=== PATIENT | male | born 1940 | race Caucasian/White ===

== ENCOUNTER → 2023-05-22 08:32 | Outpatient (REF) | payer MEDICARE, SELFPAY ==
[2023-05-22 10:32] LABS: ALT (SGPT) 19 U/L (0-50); AST (SGOT) 25 U/L (17-59); Albumin 4.1 g/dl (3.5-5.0); Alkaline Phosphatase 67 U/L (38-126); Blood Urea Nitrogen 19 mg/dl (9-20); Calcium 9.6 mg/dl (8.4-10.2); Carbon Dioxide 30 mmol/L (22-30); Chloride 100 mmol/L (98-107); Glucose 93 mg/dl (70-99); HDL Cholesterol 65 mg/dl; LDL Cholesterol, Calculated 62 mg/dl; Potassium 4.3 mmol/L (3.5-5.1); Sodium 138 mmol/L (135-145); Total Bilirubin 1.1 mg/dl (0.2-1.3); Total Cholesterol 146 mg/dl (50-199); Total Protein 6.4 g/dl (6.3-8.2); Triglyceride 98 mg/dl (10-149); Very Low Density Lipoprotein 19 mg/dl (0-30); eGFR > 60.00
== END ==
LOC: REG 08:32
PROVIDERS: ATTENDING PHYSICIAN Family Medicine
DX: E78.2 Mixed hyperlipidemia (principal)
CPT/HCPCS: 36415; 80053; 80061

== ENCOUNTER → 2023-06-20 | Outpatient (REF) | payer MEDICARE, SELFPAY | LOC: DHSLP | PROVIDERS: ATTENDING PHYSICIAN Internal Medicine; FAMILY PHYSICIAN Family Medicine | DX: G47.33 Obstructive sleep apnea (adult) (pediatric) (principal) | CPT/HCPCS: 95806 ==

== ENCOUNTER 2023-07-15 06:07 | Inpatient (IN) | payer MEDICARE, SELFPAY ==
--- NOTE | 2023-06-10 09:31 | CM ---
Patient is scheduled for an elective L TKR on 12/11/21. Spoke with patient prior to surgery via telephone. Patient had a R TSA (2020) and R TKR (2021), both at . Reintroduced role of Orthopedic Navigator. Patient reports that he lives alone in a
one story home. There are three steps to enter. He currently functions independently. He has a cane, rolling walker and shower seat. He has had VN services through VN. PCP is Dr. Zafar Montez.
Discussed orthopedic program and post surgical plans. Reviewed anticipated length of stay and that goal is for him to return home at discharge. Also reviewed outpatient PT. Patient is in agreement with tentative plan but will need VN services as he
does not have transportation for outpatient PT. He does not think that he will have anyone staying with him when he goes home after surgery.
Patient will complete online education.
Plan: Orthopedic Navigator will remain available to assist with the care of patient and will reassess discharge needs after surgery.
[2023-06-24 13:54] VITALS: BMI 31.2
[2023-06-24 14:15] VITALS: BMI 31.2
[2023-06-24 14:18] LABS: Hematocrit 41.7 % (39.0-52.0); Hemoglobin 13.4 g/dL (13.0-18.0); Mean Corp Hgb Conc. 32.1 g/dL (33.0-37.0); Mean Corpuscular Hgb 26.9 pg (27.0-31.0); Mean Corpuscular Volume 83.6 fL (80.0-94.0); Mean Platelet Volume 8.9 fL (7.4-10.4); Platelet Count 378 10^3/uL (130-400); Red Blood Cell Count 4.99 10^6/uL (4.70-6.10); Red Cell Dist. Width 13.6 % (11.5-14.5); White Blood Cell Count 8.4 10^3/uL (4.8-10.8)
[2023-06-24 14:50] LABS: Glycohemoglobin (HgbA1c) 6.1 % (4.0-5.6)
[2023-06-24 15:30] LABS: ALT (SGPT) 21 U/L (0-50); AST (SGOT) 24 U/L (17-59); Albumin 4.1 g/dl (3.5-5.0); Alkaline Phosphatase 101 U/L (38-126); Blood Urea Nitrogen 25 mg/dl (9-20); Calcium 9.8 mg/dl (8.4-10.2); Carbon Dioxide 28 mmol/L (22-30); Chloride 100 mmol/L (98-107); Estimated Creatinine Clearance 70 ml/min; Glucose 117 mg/dl (70-99); Potassium 4.3 mmol/L (3.5-5.1); Sodium 139 mmol/L (135-145); Total Bilirubin 0.3 mg/dl (0.2-1.3); Total Protein 6.6 g/dl (6.3-8.2); eGFR > 60.00
--- NOTE | 2023-07-03 15:17 | W.PREADMORTH ---
Ortho Preadmission Testing
-
Pt called me today to inform me he was started on Doxycycline 100 mg PO BID per PCP on 06/30 for a tick bite of his inner left forearm.
He was able to remove the tick himself; however, shortly after removing the tick, he noticed a red cher-ae heights around his bite.
He will be on Doxycycline until 07/09. He notes that his red cher-ae heights is fading away and he denies any other recent abnormal symptoms.
Discussed w/ surgeon. Pt may still proceed as planned w/ L TKA on 07/14.
Advised pt to call me should new symptoms present.
[2023-07-15] VITALS (12 sets, daily range): BP systolic 99–162; BP diastolic 59–89; PULSE 79–86; O2SAT 92; BMI 31.2
[2023-07-15] MEDS: NORMOSOL-R 1000 IV ×2 (06:35→09:29)
[2023-07-15] MEDS: CELEBREX 200 MG PO (06:35)
[2023-07-15] MEDS: TYLENOL 650 MG PO ×4 (06:35→20:35)
[2023-07-15] MEDS: BACTROBAN NASAL 1 GRAM NASAL (06:37)
[2023-07-15] MEDS: LOPRESSOR 25 MG PO (06:54)
[2023-07-15] MEDS: DILAUDID 0.25 MG IV ×2 (08:53→09:11)
[2023-07-15] MEDS: ULTRAM 50 MG PO ×3 (09:31→18:07)
--- NOTE | 2023-07-15 10:00 | PTCARENOTE ---
Pt received from the PACU via bed. Transport was w/o incident. Pt is AAOx3, HRR w/ murmur. Lungs are clear, resp. easy. Pt is currently on 2L 02 via nc with Pulse ox 94%. Pt's left knee with Aquacell dressing C/D/I scant spot of bloody drainage
noted. Ice pack to left knee as ordered. VSS, Pt is afebrile. Pt instructed on plan of care. Pt verbalized understanding of instructions. Call melton is within reach.
--- NOTE | 2023-07-15 11:13 | W.PN.ORTHO ---
Today's Communication / Plan
-
D/c when clinically stable.
Assessment
.
Distal Motor Intact: Yes
Dressing:
Clean, dry and intact.
Assessment:
L knee OA s/p L TKA w/ Dr Mitchell 07/15/23
- s/p R TSA, 05/2020, by Dr Britton and R TKA, 11/2021, by Dr Mitchell
DVT prophylaxis - ASA, b/l venous foot pumps
HTN - + parameters - monitor BP
CAD, status post PCI with drug-eluting LAD stent 06/2013 - continue statin
- Resume ASA but at 325 mg dosing x4 weeks for DVT prevention
PACs and PVCs with history of palpitations - monitor on tele
- Continue BB
Chronic bronchitis with asthmatic component
Chronic dyspnea on exertion
Chronic sinusitis with post-nasal drip
Suspected obstructive sleep apnea, sleep study pending
- Monitor O2. Consider continuous pulse ox
- Resume inhaler
- Resume Montelukast and Claritin prn
- IS
- Consider supplemental O2 HS
GERD and Hiatal hernia - add Pepcid HS
BPH with urinary retention, status post TURP 2013 - monitor voids
- Flomax continued amauri-op -> consider increased dose if retention occurs
HLD
Mild valvular disease
Multilevel degenerative disc disease with stenosis
Scoliosis
Pseudogout
Anxiety
Insomnia
Hearing impairment bilaterally
Prediabetes, A1c 6.1
Obesity, BMI 31.2
Remote history of tobacco abuse
Plan
.
Surgery / Date: Christophe DELAROSA w/ Dr Mitchell 07/15/23
DVT Prophylaxis: Aspirin
Activity:
Out of bed.
PT/OT
Discharge Plan: Home w/ VN
Subjective
.
.:
Patient resting comfortably in bed.
L knee pain minimal and currently well tolerated.
Denies any new significant complaints.
Vital Signs and Labs
.
Vital Signs and Labs:
Lab Results
06/24/23 13:50
06/24/23 13:50
Temp Pulse Resp BP Pulse Ox
97.6 F 86 18 129/79 94
07/15/23 06:14 07/15/23 06:54 07/15/23 06:14 07/15/23 06:54 07/15/23 06:14
Physical Exam
-
HEENT: No pallor, cyanosis, or jaundice. Throat clear.
NECK: Supple. No JVD.
RESPIRATORY: Lungs clear to auscultation.
CVS: S1, S2 normal. RRR w/ occ ectopy.
ABDOMEN: Soft, non-tender. No distension. Obese.
EXTREMITIES: Strength equal, no calf pain with palpation/dorsiflexion. Calves soft.
DIELECTRIC MACHINE OPERATOR: AOx3. No focal deficits. chief wheelage clerk grossly intact
[2023-07-15] MEDS: ORETIC 25 MG PO (12:02)
[2023-07-15] MEDS: CRESTOR 40 MG PO (12:02)
[2023-07-15] MEDS: SINGULAIR 10 MG PO (12:02)
[2023-07-15] MEDS: FLOMAX 0.400000000000000022 MG PO (12:03)
[2023-07-15] MEDS: TOPROL XL 25 MG PO (12:03)
[2023-07-15] MEDS: ZETIA 10 MG PO (12:03)
[2023-07-15] MEDS: VITAMIN D3 (cholecalciferol) 50 MCG PO (12:04)
[2023-07-15] MEDS: ASPIRIN 325 MG PO (18:06)
[2023-07-15] MEDS: ANCEF 5 IV ×2 (18:06→22:05)
[2023-07-15] MEDS: SYMBICORT 80/4.5 MCG INHALER 2 PUFF INH (20:03)
[2023-07-15] MEDS: BACTROBAN 2% OINTMENT 1 APPLIC NASAL (20:34)
[2023-07-15] MEDS: SENOKOT 17.1999999999999993 MG PO (20:35)
[2023-07-15] MEDS: DECADRON 4 MG PO (20:35)
[2023-07-15] MEDS: PEPCID 20 MG PO (20:35)
[2023-07-15] MEDS: COLACE 100 MG PO (20:35)
[2023-07-15] MEDS: ATIVAN 0.5 MG PO (22:05)
[2023-07-16] MEDS: TYLENOL PO (01:14)
[2023-07-16 03:12] VITALS: BP 118/65
[2023-07-16] MEDS: TYLENOL 650 MG PO ×2 (04:06→08:23)
[2023-07-16] MEDS: DILAUDID 0.5 MG IV (05:19)
[2023-07-16 07:44] VITALS: BP 102/67
[2023-07-16] MEDS: SYMBICORT 80/4.5 MCG INHALER 2 PUFF INH (07:50)
[2023-07-16] MEDS: ULTRAM 50 MG PO (08:22)
[2023-07-16] MEDS: CELEBREX 200 MG PO (08:24)
[2023-07-16] MEDS: COLACE 100 MG PO (08:24)
[2023-07-16] MEDS: SINGULAIR 10 MG PO (08:24)
[2023-07-16] MEDS: CRESTOR 40 MG PO (08:25)
[2023-07-16] MEDS: ASPIRIN 325 MG PO (08:25)
[2023-07-16] MEDS: SENOKOT 17.1999999999999993 MG PO (08:25)
[2023-07-16] MEDS: ZETIA 10 MG PO (08:25)
[2023-07-16] MEDS: DECADRON 4 MG PO (08:26)
[2023-07-16] MEDS: FLOMAX 0.400000000000000022 MG PO (08:26)
[2023-07-16] MEDS: VITAMIN D3 (cholecalciferol) 50 MCG PO (08:26)
[2023-07-16] MEDS: TOPROL XL 25 MG PO (08:27)
[2023-07-16] MEDS: ORETIC PO (08:27)
[2023-07-16] MEDS: BACTROBAN 2% OINTMENT 1 APPLIC NASAL (08:27)
--- NOTE | 2023-07-16 08:33 | CM ---
Addendum entered by Katie Montez 07/16/23 11:42:
Patient did well in therapy. He has no concerns about discharge plans and has updated his son.
Original Note:
Reviewed chart and held rounds with PT, OT and nursing. Patient admitted as planned for elective L TKR. Met with patient at bedside. Confirmed information previously obtained for assessment. Also discussed discharge plans. The plan is for patient to
return home at discharge. His son will stay with him tonight. Reviewed VN services including start of care (tentatively 07/16), services to be ordered (PT, SN) and frequency/duration of services. Options list provided and PAC data reviewed. Patient
selects VN.
Patient has a rolling walker, raised toilet seat and a cane at home.
VN referral was completed and sent to [facility] through [employer] with request for start of care on 07/16. Confirmation received of their ability to accept case. auction clerk to fax discharge instructions to [facility] when complete.
Patient will use [facility] pharmacy for discharge prescriptions.
[2023-07-16 09:51] VITALS: BP 145/69; BP 159/82; PULSE 103; O2SAT 88
[2023-07-16 11:02] VITALS: BP 107/55
[2023-07-16 11:40] VITALS: BP 102/67; PULSE 103; O2SAT 98
[2023-07-16] MEDS: PROTONIX IV 40 MG IV (11:45)
[2023-07-16] MEDS: NSS (PRESERVATIVE FREE) 10 ML IV (11:45)
--- NOTE | 2023-07-16 11:58 | W.PN.ORTHO ---
Today's Communication / Plan
-
D/c today since clinically stable, did well w/ PT and OT.
Assessment
.
Distal Motor Intact: Yes
Dressing:
Small amount of old incisional drainage. Dressing otherwise C/D/I.
Assessment:
L knee OA s/p L TKA w/ Dr Mitchell 07/15/23
- s/p R TSA, 05/2020, by Dr Britton and R TKA, 11/2021, by Dr Mitchell
DVT prophylaxis - ASA, b/l venous foot pumps
HTN - + parameters - BPs stable
CAD, status post PCI with drug-eluting LAD stent 06/2013 - continue statin
- Resumed ASA but at 325 mg dosing x4 weeks for DVT prevention
PACs and PVCs with history of palpitations - maintaining NSR w/ occ monomorphic PVCs on tele
- Continue BB
Chronic bronchitis with asthmatic component
Chronic dyspnea on exertion
Chronic sinusitis with post-nasal drip
Suspected obstructive sleep apnea, sleep study pending
- O2 stable on RA
- Resumed inhaler
- Resumed Montelukast and Claritin prn
- IS
GERD and Hiatal hernia - added Pepcid HS
BPH with urinary retention, status post TURP 2013 - voiding appropriately prior to d/c
- Flomax continued amauri-op
HLD
Mild valvular disease
Multilevel degenerative disc disease with stenosis
Scoliosis
Pseudogout
Anxiety
Insomnia
Hearing impairment bilaterally
Prediabetes, A1c 6.1
Obesity, BMI 31.2
Remote history of tobacco abuse
Plan
.
Surgery / Date: L TKA w/ Dr Mitchell 07/15/23
DVT Prophylaxis: Aspirin
Activity:
Out of bed.
PT/OT
Discharge Plan: Home w/ VN
Subjective
.
.:
Patient resting comfortably in his chair.
L knee pain comfortable at rest but exacerbated w/ WB activities - will switch Tramadol to Tylenol #3 per patient preference.
Denies any other new significant complaints.
Eager for potential d/c today.
Vital Signs and Labs
.
Vital Signs and Labs:
Lab Results
06/24/23 13:50
06/24/23 13:50
Temp Pulse Resp BP Pulse Ox
98.7 F 99 16 107/55 90
07/16/23 11:02 07/16/23 11:02 07/16/23 11:02 07/16/23 11:02 07/16/23 11:02
Non-invasive Hgb result: 13.1
Physical Exam
-
HEENT: No pallor, cyanosis, or jaundice. Throat clear.
NECK: Supple. No JVD.
RESPIRATORY: Lungs clear to auscultation.
CVS: S1, S2 normal. RRR w/ occ ectopy.
ABDOMEN: Soft, non-tender. No distension. Obese.
EXTREMITIES: Mild post-op L knee edema. Strength equal, no calf pain with palpation/dorsiflexion. Calves soft.
FIRE EXTINGUISHER MECHANIC: AOx3. No focal deficits. siding coreboard inspector grossly intact
--- NOTE | 2023-07-16 12:11 | W.DS.TRANS ---
DC Summary - Claims Clerk
-
Discharge Instructions:
Sleep Apnea Risk Intermediate
Discharge Diagnosis/Procedures L knee OA s/p L TKA w/ Dr Mitchell 07/15/23
Diet Regular
Activity As tolerated,With Walker
Driving Restrictions Not until seen by your Dr
Bathing Restrictions OK to Shower
Other Services PT,VN
Wound Care Dressing to be removed 1 week post-surgery.
Summer to be removed at 2 week follow- up
appointment with surgeon's office
Instructions:
Stand-Alone Forms: Total Hip/Knee Replacement D/C
Changes to Home Medications: Yes
Discharge Medications:
DC Medications w/original date entered in [facility]
tamsulosin 0.4 mg capsule 0.4 mg PO DAILY Urinary issue 02/23/20
ascorbic acid (vitamin C) 500 mg tablet (Vitamin C) 500 mg PO DAILY Supplement 03/10/23
cholecalciferol (vitamin D3) 50 mcg (2,000 unit) capsule (Vitamin D3) 50 mcg PO DAILY Supplement 03/10/23
cyanocobalamin (vitamin B-12) 5,000 mcg capsule 5,000 mcg PO DAILY Supplement 03/10/23
ezetimibe 10 mg tablet (Zetia) 10 mg PO DAILY High Cholesterol 03/10/23
fluticasone propionate 50 mcg/actuation nasal spray,suspension 2 spray intranasal DAILY Allergies 03/10/23
magnesium 200 mg tablet 200 mg PO DAILY Electrolyte Repletion 03/10/23
rosuvastatin 40 mg tablet (Crestor) 40 mg PO DAILY High Cholesterol 03/10/23
therapeutic multivitamin 1 tab PO DAILY Supplement 03/10/23
budesonide-formoterol HFA 80 mcg-4.5 mcg/actuation aerosol inhaler (Symbicort) 2 puff inhalation R BID Anti-inflammatory #10.2 grams 03/12/23
loratadine 5 mg-pseudoephedrine ER 120 mg tablet,extended release,12hr (Claritin-D 12 Hour) 1 tab PO DAILYPRN PRN allergies 06/19/23
montelukast 10 mg tablet 10 mg PO DAILY ASTHMA 06/24/23
mupirocin 2 % topical ointment 1 applic intranasal BID #1 tube 06/24/23
metoprolol succinate 25 mg tablet,extended release 24 hr 25 mg PO DAILY Heart Failure 06/27/23
acetaminophen 300 mg-codeine 30 mg tablet 1 - 2 tab PO Q6H PRN moderate-severe pain #30 tabs 07/16/23
acetaminophen 325 mg tablet 650 mg (2 x 325 mg) PO Q6H PRN mild pain #60 tabs 07/16/23
aspirin 325 mg tablet 325 mg PO DAILY #30 tabs 07/16/23
celecoxib 200 mg capsule 200 mg PO DAILY #30 caps 07/16/23
dexamethasone 4 mg tablet 4 mg PO BID #5 tabs 07/16/23
docusate sodium 100 mg capsule 100 mg PO BID #30 caps 07/16/23
famotidine 20 mg tablet 20 mg PO HS #30 tabs 07/16/23
guaifenesin 600 mg tablet, extended release 12 hr 600 mg PO Q12 PRN Cough/congestion #20 tabs 07/16/23
hydrochlorothiazide 25 mg tablet 25 mg PO DAILY Blood Pressure #0 tabs 07/16/23
lorazepam 0.5 mg tablet 0.5 mg PO TID PRN anxiety/insomnia #0 tabs 07/16/23
ondansetron HCl 4 mg tablet 4 mg PO Q6H PRN nausea and vomiting #30 tabs 07/16/23
sennosides 8.6 mg tablet (Senna Laxative) 17.2 mg (2 x 8.6 mg) PO BID #30 tabs 07/16/23
Home Medication Changes
acetaminophen 300 mg-codeine 30 mg tablet 1 - 2 tab PO Q6H PRN moderate-severe pain #30 tabs 07/16/23
acetaminophen 325 mg tablet 650 mg (2 x 325 mg) PO Q6H PRN mild pain #60 tabs 07/16/23
aspirin 325 mg tablet 325 mg PO DAILY #30 tabs 07/16/23
celecoxib 200 mg capsule 200 mg PO DAILY #30 caps 07/16/23
dexamethasone 4 mg tablet 4 mg PO BID #5 tabs 07/16/23
docusate sodium 100 mg capsule 100 mg PO BID #30 caps 07/16/23
famotidine 20 mg tablet 20 mg PO HS #30 tabs 07/16/23
ondansetron HCl 4 mg tablet 4 mg PO Q6H PRN nausea and vomiting #30 tabs 07/16/23
sennosides 8.6 mg tablet (Senna Laxative) 17.2 mg (2 x 8.6 mg) PO BID #30 tabs 07/16/23
Pending Results: No
== END 2023-07-16 13:57 | disposition home health service (06) | DRG 470 ==
LOC: 2 SOUTH 06:07
PROVIDERS: ADMITTING PHYSICIAN Specialist; FAMILY PHYSICIAN Family Medicine
PROC: 0SRD0J9 Replacement of Left Knee Joint with Synthetic Substitute, Cemented, Open Approach (ICD-10-PCS; 2023-07-15)
DX: M17.12 Unilateral primary osteoarthritis, left knee (principal); J44.89 Other specified chronic obstructive pulmonary disease; J32.9 Chronic sinusitis, unspecified; K21.9 Gastro-esophageal reflux disease without esophagitis; E78.5 Hyperlipidemia, unspecified; E66.9 Obesity, unspecified; Z68.31 Body mass index [BMI] 31.0-31.9, adult; I10 Essential (primary) hypertension; M41.9 Scoliosis, unspecified; I49.1 Atrial premature depolarization; I49.3 Ventricular premature depolarization; N40.1 Benign prostatic hyperplasia with lower urinary tract symptoms; Z90.79 Acquired absence of other genital organ(s)
CPT/HCPCS: 36415; 73560; 80053; 83036; 85027; 87070; 94640; 97110; 97116; 97162; 97166; 97535; C1713; C1776

== ENCOUNTER → 2023-10-09 07:19 | Outpatient (REF) | payer MEDICARE, SELFPAY ==
[2023-10-09 09:15] LABS: ALT (SGPT) 17 U/L (0-50); AST (SGOT) 24 U/L (17-59); Albumin 4.4 g/dl (3.5-5.0); Alkaline Phosphatase 83 U/L (38-126); Blood Urea Nitrogen 16 mg/dl (9-20); Calcium 10.1 mg/dl (8.4-10.2); Carbon Dioxide 27 mmol/L (22-30); Chloride 100 mmol/L (98-107); Glucose 94 mg/dl (70-99); HDL Cholesterol 63 mg/dl; LDL Cholesterol, Calculated 49 mg/dl; Potassium 4.5 mmol/L (3.5-5.1); Sodium 138 mmol/L (135-145); Total Bilirubin 0.7 mg/dl (0.2-1.3); Total Cholesterol 139 mg/dl (50-199); Total Protein 6.7 g/dl (6.3-8.2); Triglyceride 136 mg/dl (10-149); Very Low Density Lipoprotein 27 mg/dl (0-30); eGFR > 60.00
[2023-10-09 11:04] LABS: Glycohemoglobin (HgbA1c) 5.8 % (4.0-5.6)
== END ==
LOC: REG 07:19
PROVIDERS: ATTENDING PHYSICIAN Family Medicine
DX: E78.5 Hyperlipidemia, unspecified (principal); R73.03 Prediabetes
CPT/HCPCS: 36415; 80053; 80061; 83036

== ENCOUNTER → 2024-04-16 10:39 | Outpatient (REF) | payer MEDICARE, SELFPAY ==
[2024-04-16 12:11] LABS: ALT (SGPT) 21 U/L (0-50); AST (SGOT) 26 U/L (17-59); Albumin 4.4 g/dl (3.5-5.0); Alkaline Phosphatase 76 U/L (38-126); Blood Urea Nitrogen 24 mg/dl (9-20); Calcium 9.8 mg/dl (8.4-10.2); Carbon Dioxide 33 mmol/L (22-30); Chloride 99 mmol/L (98-107); Glucose 97 mg/dl (70-99); HDL Cholesterol 68 mg/dl; LDL Cholesterol, Calculated 74 mg/dl; Potassium 5.1 mmol/L (3.5-5.1); Sodium 139 mmol/L (135-145); Total Bilirubin 0.8 mg/dl (0.2-1.3); Total Cholesterol 164 mg/dl (50-199); Total Protein 6.9 g/dl (6.3-8.2); Triglyceride 110 mg/dl (10-149); Very Low Density Lipoprotein 22 mg/dl (0-30); eGFR > 60.00
== END ==
LOC: REG 10:39
PROVIDERS: ATTENDING PHYSICIAN Family Medicine
DX: E78.2 Mixed hyperlipidemia (principal); R73.03 Prediabetes
CPT/HCPCS: 36415; 80053; 80061; 83036

== ENCOUNTER → 2024-10-08 09:15 | Outpatient (REF) | payer MEDICARE, SELFPAY ==
[2024-10-08 10:45] LABS: ALT (SGPT) 20 U/L (0-50); AST (SGOT) 23 U/L (17-59); Albumin 4.4 g/dl (3.5-5.0); Alkaline Phosphatase 74 U/L (38-126); Blood Urea Nitrogen 24 mg/dl (9-20); Calcium 9.4 mg/dl (8.4-10.2); Carbon Dioxide 28 mmol/L (22-30); Chloride 105 mmol/L (98-107); Glucose 88 mg/dl (70-99); HDL Cholesterol 69 mg/dl; LDL Cholesterol, Calculated 67 mg/dl; Potassium 4.3 mmol/L (3.5-5.1); Sodium 139 mmol/L (135-145); Total Protein 6.9 g/dl (6.3-8.2); Uric Acid 6.1 mg/dl (3.5-8.5); Very Low Density Lipoprotein 16 mg/dl (0-30); eGFR > 60.00
[2024-10-08 11:22] LABS: Glycohemoglobin (HgbA1c) 6.0 % (4.0-5.6)
== END ==
LOC: REG 09:15
PROVIDERS: ATTENDING PHYSICIAN Family Medicine
DX: E78.2 Mixed hyperlipidemia (principal); E79.0 Hyperuricemia without signs of inflammatory arthritis and tophaceous disease; R73.03 Prediabetes
CPT/HCPCS: 36415; 80053; 80061; 83036; 84550

== ENCOUNTER 2024-10-12 16:46 | Emergency (ER) | payer MEDICARE, SELFPAY ==
[2024-10-12] VITALS (11 sets, daily range): BP systolic 121–144; BP diastolic 59–86; PULSE 84–94; BMI 30.4
[2024-10-12 16:53] LABS: Glucose - Point of Care 129 mg/dl (70-99)
[2024-10-12 17:17] LABS: Hematocrit 42.2 % (39.0-52.0); Hemoglobin 14.1 g/dL (13.0-18.0); Mean Corp Hgb Conc. 33.4 g/dL (33.0-37.0); Mean Corpuscular Volume 80.5 fL (80.0-94.0); Nucleated Red Blood Cells % 0 % (-); Platelet Count 330 10^3/uL (130-400); Red Cell Dist. Width 14.3 % (11.5-14.5)
[2024-10-12 17:31] LABS: ALT (SGPT) 21 U/L (0-50); AST (SGOT) 28 U/L (17-59); Albumin 4.9 g/dl (3.5-5.0); Alkaline Phosphatase 81 U/L (38-126); Blood Urea Nitrogen 21 mg/dl (9-20); Calcium 9.9 mg/dl (8.4-10.2); Carbon Dioxide 24 mmol/L (22-30); Chloride 105 mmol/L (98-107); Estimated Creatinine Clearance 66 ml/min; Glucose 121 mg/dl (70-99); Potassium 4.3 mmol/L (3.5-5.1); Sodium 137 mmol/L (135-145); Total Protein 7.5 g/dl (6.3-8.2); eGFR > 60.00
--- NOTE | 2024-10-12 17:37 | ED.GENMED ---
History of Present Illness
General
Chief Complaint: Dizziness
Time Seen by Provider: 10/12/24 17:30
History of Present Illness
History of Present Illness:
84-year-old male with history of CAD, hypertension, hyperlipidemia, and chronic back pain presents to the emergency department for evaluation of severe dizziness and weakness that developed while he was mowing his yard today. He was push mowing the
yard for over 1 hour when he began to feel symptoms. Admits that he did not drink much fluid today. Feels improved but still weak since arriving to the ER. He does report mild chest pressure that occurred during the episode but none since.
Denies any chest pain or shortness of breath at present. No recent fevers or chills.
Past History
Past History
ED Past Medical History: CAD (2 stents), HTN, Hypercholesterolemia, HI and Other (BPH, chronic sinusitis, Urinary retention, OA)
ED Past Surgical History: Cardiac (Stents), Orthopedic (Shoulder surgery), Tonsilectomy, Urological (TURP) and Other (Sinus surgery, Hernia repair)
Patient has exhibited threatening behavior?: No
Social History
Tobacco: Non-smoker
Alcohol: Daily (wine 1 glass with dinner)
Drug: None
Personal:
Living: alone
Employment: Retired
Family History
Family History: Other (nc)
Review of Systems
Review of Systems
Allergies reviewed?: Yes
All Other Systems: ROS reviewed and negative except as documented in HPI and ROS
Phy Exam
Physical Exam
Physical Exam:
GEN: Well appearing, NAD, WDWN
HEENT: Oral mucosa moist, no scleral icterus, no nasal congestion
Cardiac: Regular rate and rhythm, no murmur
Lung: No respiratory distress, no tachypnea, lungs clear to auscultation bilaterally
MSK: No gross deformity or injuries
Skin: Good color, no pallor or jaundice, no rashes
Neuro: AO x3; CN II-XII grossly intact. BUE strength 5/5 in all cardona, sensation intact and symmetric. BLE strength 5/5 in all cardona, sensation intact and symmetric
Psych: Calm, cooperative
Course
Orders/Labs/Results
Orders:
Orders
10/12/24 16:52
Electrocardiogram (*1) Urgent
Reason for Study: Chest Pain
EKG- Treatment ONCE
10/12/24 16:59
Complete Blood Count/With Diff Urgent
Comprehensive Metabolic Panel Urgent
Troponin I Urgent
10/12/24 17:36
0.9% Sodium Chloride 1000 ml [Nss] 1,000 ml IV BOLUS
10/12/24 18:53
Orthostatic VS- Treatment ONCE
10/12/24 19:36
Troponin I Urgent
Abnormal Lab Results
10/12/24 10/12/24
16:51 16:59
WBC 12.1 H 10^3/uL
(4.8-10.8)
MCH 26.9 L pg
(27.0-31.0)
Abs Immat Gran (auto) 0.1 H 10^3/uL
(0-0.05)
Absolute Neuts (auto) 9.8 H 10^3/uL
(1.4-6.5)
Absolute Monos (auto) 0.8 H 10^3/uL
(0.1-0.6)
Immature Gran % 0.7 H %
(0-0.5)
Neutrophils % 80.8 H %
(42.2-75.2)
Lymphocytes % 10.2 L %
(20.5-51.1)
BUN 21 H mg/dl
(9-20)
Glucose 121 H mg/dl
(70-99)
POC Glucose 129 H mg/dl
(70-99)
10/12/24 16:59
10/12/24 16:59
Vital Signs
Initial and Last Documented VS:
Initial Vital Signs
Temp Pulse Resp BP Pulse Ox
97.5 F 86 20 121/59 98
10/12/24 16:48 10/12/24 16:48 10/12/24 16:48 10/12/24 16:48 10/12/24 16:48
Last Documented Vital Signs
Temp Pulse Resp BP Pulse Ox
97.5 F 92 21 144/86 94
10/12/24 17:28 10/12/24 19:33 10/12/24 19:33 10/12/24 19:33 10/12/24 19:33
MDM/Problems Addressed
MDM/Problems Addressed:
Patient's symptoms are most likely due to heat exhaustion given exertion and 80+ degree humid heat, initial and repeat troponins are negative, EKG shows no ischemic changes. Moriarty much better after period of observation and IV fluids in the ED
Comment
Comment:
EKG independently interpreted by me shows normal sinus rhythm at a rate of [address] changes concerning for ischemia, QTc is prolonged at 508
*Pulse Oximetry
SaO2: 95
Oxygen Mode of Delivery: Room air
Patient hypoxic: no
*Critical Care Note
Total Time (30-74mins, 75-104mins- exclusive of procedures): Not Applicable
ED Attending Note
-
Portions of this chart may have been created with voice recognition software.� Occasional wrong word or��sound alike� substitutions may have occurred due to the inherent limitations of voice recognition software.
Discharge Plan
Departure
Patient Disposition: Home (Routine Discharge)
Date of Disposition: 10/12/24
Time of Disposition: 20:54
Patient with high blood pressure during this ER visit?: No
Discharge Problem:
Heat exhaustion
Instructions: Heat Illness ED
Prescriptions:
No Action
tamsulosin 0.4 MG capsule
0.4 mg PO DAILY
therapeutic multivitamin Tablet
1 tab PO DAILY
ascorbic acid (vitamin C) [Vitamin C] 500 mg Tablet
500 mg PO DAILY
fluticasone propionate 50 mcg/actuation Cedar,Suspension
2 spray INTRANASAL DAILY
magnesium 200 mg Tablet
200 mg PO DAILY
ezetimibe [Zetia] 10 mg Tablet
10 mg PO DAILY
rosuvastatin [Crestor] 40 mg Tablet
40 mg PO DAILY
cholecalciferol (vitamin D3) [Vitamin D3] 50 mcg (2,000 unit) Capsule
50 mcg PO DAILY
cyanocobalamin (vitamin B-12) 5,000 mcg Capsule
5,000 mcg PO DAILY
budesonide-formoterol [Symbicort] 80-4.5 mcg/actuation Hfa Aerosol Inhaler
2 puff inhalation R BID Qty: 10.2 0RF
Claritin-D 12 Hour 5-120 mg Tablet Extended Release 12 Hr
1 tab PO DAILYPRN PRN (Reason: allergies)
mupirocin 2 % ointment
1 applic intranasal BID Qty: 1 0RF
Patient Comments:
started treatment on saturday07/12/23 in am and completed BID, last took at home 07/14/23 in evening
montelukast 10 mg tablet
10 mg PO DAILY
metoprolol succinate 25 mg Tablet Extended Release 24 Hr
25 mg PO DAILY
aspirin 325 mg Tablet
325 mg PO DAILY Qty: 30 0RF
Rx Instructions:
Take daily x4 weeks for blood clot prevention; then resume Aspirin 81 mg daily.
celecoxib 200 mg Capsule
200 mg PO DAILY Qty: 30 0RF
Rx Instructions:
Take with food.
DO NOT take within 2 hours of Aspirin.
docusate sodium 100 mg Capsule
100 mg PO BID Qty: 30 0RF
dexamethasone 4 mg Tablet
4 mg PO BID Qty: 5 0RF
Rx Instructions:
Restart night of discharge and continue twice a day until finished.
Take with food.
famotidine 20 mg Tablet
20 mg PO HS Qty: 30 0RF
Rx Instructions:
Take nightly while on Celebrex and Aspirin to prevent GI upset.
sennosides [Senna Laxative] 8.6 mg Tablet
17.2 mg PO BID Qty: 30 0RF
acetaminophen 325 mg Tablet
650 mg PO Q6H PRN (Reason: mild pain) Qty: 60 0RF
Rx Instructions:
DO NOT exceed >3000 mg daily while on Tylenol with Codeine.
1 Tylenol with Codeine = 300 mg of Tylenol.
acetaminophen-codeine 300-30 mg Tablet
1 - 2 tab PO Q6H PRN (Reason: moderate-severe pain) Qty: 30 0RF
Rx Instructions:
1 tab for moderate pain, 2 if severe.
Dx total joint.
ondansetron HCl 4 mg tablet
4 mg PO Q6H PRN (Reason: nausea and vomiting) Qty: 30 0RF
lorazepam 0.5 mg Tablet
0.5 mg PO TID PRN (Reason: anxiety/insomnia) Qty: 0 0RF
Rx Instructions:
Caution with Tylenol with Codeine - can cause drowsiness.
Take only as directed/as needed.
hydrochlorothiazide 25 MG tablet
25 mg PO DAILY Qty: 0 0RF
Rx Instructions:
HOLD IF systolic blood pressure <130 while on Tylenol with Codeine.
guaifenesin 600 mg Tablet Extended Release 12hr
600 mg PO Q12 PRN (Reason: Cough/congestion) Qty: 20 0RF
Referrals:
Zafar Montez MD [Family Provider, Family Practice]
Interventions
Interventions:
*Risk Screen - Suicide Last Done: 10/12/24 16:48
*General Assessment Last Done: 10/12/24 17:31
*Neglect/Abuse Screening Last Done: 10/12/24 16:48
*ED- Fall Risk Assessment Last Done: 10/12/24 17:38
*ED COVID-19 Vaccine History Last Done: 10/12/24 17:38
ED- Neurological Assessment Last Done: 10/12/24 17:31
ED- Cardiac Assessment Last Done: 10/12/24 17:31
Discharge Date and Time
Print Language: SLOVAK
[2024-10-12 17:40] LABS: Troponin I < 0.012 ng/ml
[2024-10-12] MEDS: NSS 1000 IV (17:47)
[2024-10-12 20:52] LABS: Troponin I < 0.012 ng/ml
== END 2024-10-12 21:30 | disposition home or self-care (01) ==
LOC: EMR 16:46
PROVIDERS: Physician Assistant; EMERGENCY PHYSICIAN Emergency Medicine; FAMILY PHYSICIAN Family Medicine
DX: R42 Dizziness and giddiness (principal); R53.1 Weakness; R07.89 Other chest pain; T67.5XXA Heat exhaustion, unspecified, initial encounter; X32.XXXA Exposure to sunlight, initial encounter; Y93.H2 Activity, gardening and landscaping; Y92.007 Garden or yard of unspecified non-institutional (private) residence as the place of occurrence of the external cause; I25.10 Atherosclerotic heart disease of native coronary artery without angina pectoris; I10 Essential (primary) hypertension; E78.00 Pure hypercholesterolemia, unspecified; G89.29 Other chronic pain; M54.9 Dorsalgia, unspecified; J32.9 Chronic sinusitis, unspecified; M19.90 Unspecified osteoarthritis, unspecified site; I25.2 Old myocardial infarction; Z95.5 Presence of coronary angioplasty implant and graft; Z79.82 Long term (current) use of aspirin
CPT/HCPCS: 99284; 96360; 80053; 82962; 84484; 85025; 93005

== ENCOUNTER 2025-01-17 15:20 | Emergency (ER) | payer MEDICARE, SELFPAY ==
[2025-01-17] VITALS (11 sets, daily range): BP systolic 116–149; BP diastolic 61–100; PULSE 90–95
[2025-01-17 16:14] LABS: Hematocrit 40.6 % (39.0-52.0); Hemoglobin 13.1 g/dL (13.0-18.0); Mean Corp Hgb Conc. 32.3 g/dL (33.0-37.0); Mean Corpuscular Volume 83.7 fL (80.0-94.0); Nucleated Red Blood Cells % 0 % (-); Platelet Count 340 10^3/uL (130-400); Red Cell Dist. Width 14.1 % (11.5-14.5)
[2025-01-17 16:19] LABS: INR 0.95; PT 13.0 Sec (11.4-14.6)
[2025-01-17 16:24] LABS: ALT (SGPT) 18 U/L (0-50); AST (SGOT) 24 U/L (17-59); Albumin 4.2 g/dl (3.5-5.0); Alkaline Phosphatase 87 U/L (38-126); Blood Urea Nitrogen 17 mg/dl (9-20); Calcium 9.7 mg/dl (8.4-10.2); Carbon Dioxide 29 mmol/L (22-30); Chloride 101 mmol/L (98-107); Glucose 96 mg/dl (70-99); Potassium 4.2 mmol/L (3.5-5.1); Sodium 136 mmol/L (135-145); Total Protein 7.0 g/dl (6.3-8.2); eGFR > 60.00
[2025-01-17 16:35] LABS: Troponin I < 0.012 ng/ml
--- NOTE | 2025-01-17 20:00 | ED.GENMED ---
History of Present Illness
General
Chief Complaint: Dizziness
Source: patient
Exam Limitations: none
Time Seen by Provider: 01/17/25 17:47
Nursing documentation reviewed up to this point in time: agreed with
History of Present Illness
History of Present Illness:
Note:
CHIEF COMPLAINT(S)
Hand numbness and arm pain.
HISTORY OF PRESENT ILLNESS
The patient is an 84-year-old male presenting with complaints of intermittent numbness in the hands and severe pain radiating down the arm. The symptoms were first noted a couple of days prior to this visit, specifically starting on Saturday. The
patient reports variability in hand temperature, feeling hot at times and mostly cold. The pain is aggravated when leaning forward to reach down. The patient attempted self-relief by adjusting posture in a recliner, leading to a popping sensation in
the neck which temporarily alleviated the pain. There was no history of falls. The patient expressed concern about the persistence of symptoms and has a follow-up appointment with his regular physician in 10 days but sought earlier intervention due
to escalating discomfort.
PHYSICAL EXAM
General: Alert, no acute distress.
Skin: Warm, dry.
Head: Normocephalic, atraumatic.
Neck: Supple, trachea midline.
Eye, Ears, Nose, Mouth, and Throat: Oral mucosa moist.
Cardiovascular: Normal peripheral perfusion, No edema.
Respiratory: Respirations are non-labored.
Gastrointestinal: Abdomen nondistended.
Back: Normal range of motion, Normal alignment.
Musculoskeletal: Normal ROM, normal strength.
Neurological: Alert and oriented to person, place, time, and situation, No focal neurological deficit observed.
Psychiatric: Cooperative, appropriate mood & affect.
PROBLEM LIST
- Acute: Hand numbness and arm pain.
PLAN
1. Prescribe medications for suspected nerve compression.
2. Arrange follow-up with an orthopedist, potentially a spinal surgeon.
3. Obtain a computed tomography (CT) scan of the neck to evaluate the cervical spine for potential nerve impingement.
DIFFERENTIAL DIAGNOSIS
The Differential Diagnosis includes, in no particular order and is not limited to:
1. Cervical radiculopathy
2. Carpal tunnel syndrome
3. Peripheral neuropathy
4. Cervical spondylosis
5. Myofascial pain syndrome
6. Brachial plexus injury
7. Thoracic outlet syndrome
8. Vascular insufficiency
9. Degenerative disc disease
10. Herniated cervical disc
CARE-UPDATE
01/17/25 - 21:00
Lightheadedness possibly due to orthostatic hypotension, but no evidence found in ED. Normal CT and labs. Cervical spine imaging shows degenerative changes indicating possible cervical radiculopathy; plan to treat with Gabapentin. Patient is stable
for discharge. No suspicion of infection, cardiovascular accident, or pulmonary embolism.
EKG
My independent EKG interpretation is:
- Time of EKG: Not specified
- Rhythm: Normal sinus rhythm
- Heart rate: 86 bpm
- GA interval: Normal
- QRS duration: Not specified
- QT interval: Normal
- Dickens: Left axis deviation
- Abnormalities observed: None noted
- No change from prior EKG
Disposition:
SUMMARY OF ENCOUNTER
The patient, an 84-year-old male, presented to the emergency department with complaints of intermittent hand numbness and severe pain radiating down the arm. These symptoms began a few days prior and were worsening. The patient noted variability in
hand temperature and a popping sensation in the neck when adjusting posture in a recliner, which temporarily relieved the pain. Concerned about the persistence and escalation of symptoms despite a scheduled follow-up, the patient sought earlier
intervention. Management in the emergency department included examining the symptoms and ruling out acute life-threatening conditions, such as acute coronary syndrome, pulmonary embolism, and vertebral or carotid artery dissection. A suspected
diagnosis of cervical radiculopathy was made based on clinical presentation and imaging findings that showed degenerative changes in the cervical spine.
DISPOSITION
Discharge from the emergency department with a stable condition.
ASSESSMENT
Suspected cervical radiculopathy was based on the patients symptom presentation and imaging results.
PLAN
1. Treat with gabapentin for suspected cervical radiculopathy.
2. Referral and follow-up with a neurosurgery specialist for further evaluation and management.
3. Return precautions were advised.
INDEPENDENT REVIEW OF LABS AND INTERPRETATION OF TESTS
My independent interpretation of the cervical spine imaging shows degenerative changes consistent with cervical radiculopathy.
FOLLOW-UP INSTRUCTIONS
Patient instructed to follow up with neurosurgery.
MEDICATION RECONCILIATION
Gabapentin prescribed for management of symptoms related to cervical radiculopathy.
MEDICAL DECISION MAKING
- Complexity of Data Reviewed: Chronic conditions affecting care include the patients history of numbness and arm pain. Differential Diagnosis includes cervical radiculopathy, carpal tunnel syndrome, peripheral neuropathy, cervical spondylosis,
myofascial pain syndrome, brachial plexus injury, thoracic outlet syndrome, vascular insufficiency, degenerative disc disease, and herniated cervical disc.
- Data:
Category 2
My independent interpretation of the EKG shows normal sinus rhythm with left axis deviation, no change from prior EKG.
- Risk:
Consideration of Admission/Observation: Escalation of care including admission/observation was considered given the complexity and risk of the patients presenting complaint, exam findings, and/or their underlying comorbidities. However, ultimately,
I feel the patient is safe for outpatient management with close follow-up. Reasoning: Work-up reassuring, does not reveal any acute life/organ-threatening processes, patients symptoms well controlled upon reevaluation, reexamination is reassuring,
vitals are stable, patient agreeable with discharge, reliable for follow-up. Prescription medication was prescribed.
DIAGNOSIS
Cervical radiculopathy (ICD-10: M54.12)
Past History
Past History
ED Past Medical History: CAD (2 stents), HTN, Hypercholesterolemia, VA and Other (BPH, chronic sinusitis, Urinary retention, OA)
ED Past Surgical History: Cardiac (Stents), Orthopedic (Shoulder surgery), Tonsilectomy, Urological (TURP) and Other (Sinus surgery, Hernia repair)
Patient has exhibited threatening behavior?: No
Social History
Tobacco: Non-smoker
Alcohol: Daily (wine 1 glass with dinner)
Drug: None
Personal:
Living: alone
Employment: Retired
Family History
Family History: Other (nc)
Phy Exam
Physical Exam
Physical Exam:
.
Course
Orders/Labs/Results
Orders:
Orders
01/17/25 15:41
EKG [Electrocardiogram (*1)] Urgent
Reason for Study: Vertigo / Dizzy
CT Head W/o Iv Contrast Urgent
Comment:
Reason For Exam: dizziness
EKG- Treatment ONCE
01/17/25 15:56
Complete Blood Count/With Diff Urgent
Comprehensive Metabolic Panel Urgent
Prothrombin Time Urgent
Troponin I Urgent
01/17/25 18:13
CT Cervical Spine W/o Iv Contr Urgent
Comment:
Reason For Exam: neck pain, paresthesias
01/17/25 20:02
Orthostatic VS- Treatment ONCE
Abnormal Lab Results
01/17/25
15:56
MCHC 32.3 L g/dL
(33.0-37.0)
Absolute Monos (auto) 0.7 H 10^3/uL
(0.1-0.6)
Lymphocytes % 19.5 L %
(20.5-51.1)
Monocytes % 10.9 H %
(1.7-9.3)
01/17/25 15:56
01/17/25 15:56
Vital Signs
Initial and Last Documented VS:
Initial Vital Signs
Temp Pulse Resp BP Pulse Ox
97.7 F 93 17 127/100 99
01/17/25 15:39 01/17/25 15:39 01/17/25 15:39 01/17/25 15:39 01/17/25 15:39
Last Documented Vital Signs
Temp Pulse Resp BP Pulse Ox
97.8 F 85 16 139/70 93
01/17/25 17:14 01/17/25 21:00 01/17/25 21:00 01/17/25 21:00 01/17/25 20:45
*Pulse Oximetry
SaO2: 93
Oxygen Mode of Delivery: Room air
Patient hypoxic: no
*Critical Care Note
Total Time (30-74mins, 75-104mins- exclusive of procedures): Not Applicable
ED Attending Note
-
Portions of this chart may have been created with voice recognition software.� Occasional wrong word or��sound alike� substitutions may have occurred due to the inherent limitations of voice recognition software.
Discharge Plan
Departure
Patient Disposition: Home (Routine Discharge)
Date of Disposition: 01/17/25
Time of Disposition: 20:55
Patient with high blood pressure during this ER visit?: Yes
Condition: Good
Discharge Problem:
Cervical radiculopathy
Instructions: Radiculopathy of the neck and back (including sciatica), BLOOD PRESSURE
Prescriptions:
New
gabapentin 100 mg capsule
100 mg PO TID Qty: 30 0RF
No Action
tamsulosin 0.4 MG capsule
0.4 mg PO DAILY
therapeutic multivitamin Tablet
1 tab PO DAILY
ascorbic acid (vitamin C) [Vitamin C] 500 mg Tablet
500 mg PO DAILY
fluticasone propionate 50 mcg/actuation [place],Suspension
2 spray INTRANASAL DAILY
magnesium 200 mg Tablet
200 mg PO DAILY
ezetimibe [Zetia] 10 mg Tablet
10 mg PO DAILY
rosuvastatin [Crestor] 40 mg Tablet
40 mg PO DAILY
cholecalciferol (vitamin D3) [Vitamin D3] 50 mcg (2,000 unit) Capsule
50 mcg PO DAILY
cyanocobalamin (vitamin B-12) 5,000 mcg Capsule
5,000 mcg PO DAILY
budesonide-formoterol [Symbicort] 80-4.5 mcg/actuation Hfa Aerosol Inhaler
2 puff inhalation R BID Qty: 10.2 0RF
Claritin-D 12 Hour 5-120 mg Tablet Extended Release 12 Hr
1 tab PO DAILYPRN PRN (Reason: allergies)
mupirocin 2 % ointment
1 applic intranasal BID Qty: 1 0RF
Patient Comments:
started treatment on saturday07/12/23 in am and completed BID, last took at home 07/14/23 in evening
montelukast 10 mg tablet
10 mg PO DAILY
metoprolol succinate 25 mg Tablet Extended Release 24 Hr
25 mg PO DAILY
aspirin 325 mg Tablet
325 mg PO DAILY Qty: 30 0RF
Rx Instructions:
Take daily x4 weeks for blood clot prevention; then resume Aspirin 81 mg daily.
celecoxib 200 mg Capsule
200 mg PO DAILY Qty: 30 0RF
Rx Instructions:
Take with food.
DO NOT take within 2 hours of Aspirin.
docusate sodium 100 mg Capsule
100 mg PO BID Qty: 30 0RF
dexamethasone 4 mg Tablet
4 mg PO BID Qty: 5 0RF
Rx Instructions:
Restart night of discharge and continue twice a day until finished.
Take with food.
famotidine 20 mg Tablet
20 mg PO HS Qty: 30 0RF
Rx Instructions:
Take nightly while on Celebrex and Aspirin to prevent GI upset.
sennosides [Senna Laxative] 8.6 mg Tablet
17.2 mg PO BID Qty: 30 0RF
acetaminophen 325 mg Tablet
650 mg PO Q6H PRN (Reason: mild pain) Qty: 60 0RF
Rx Instructions:
DO NOT exceed >3000 mg daily while on Tylenol with Codeine.
1 Tylenol with Codeine = 300 mg of Tylenol.
acetaminophen-codeine 300-30 mg Tablet
1 - 2 tab PO Q6H PRN (Reason: moderate-severe pain) Qty: 30 0RF
Rx Instructions:
1 tab for moderate pain, 2 if severe.
Dx total joint.
ondansetron HCl 4 mg tablet
4 mg PO Q6H PRN (Reason: nausea and vomiting) Qty: 30 0RF
lorazepam 0.5 mg Tablet
0.5 mg PO TID PRN (Reason: anxiety/insomnia) Qty: 0 0RF
Rx Instructions:
Caution with Tylenol with Codeine - can cause drowsiness.
Take only as directed/as needed.
hydrochlorothiazide 25 MG tablet
25 mg PO DAILY Qty: 0 0RF
Rx Instructions:
HOLD IF systolic blood pressure <130 while on Tylenol with Codeine.
guaifenesin 600 mg Tablet Extended Release 12hr
600 mg PO Q12 PRN (Reason: Cough/congestion) Qty: 20 0RF
Referrals:
Zafar Montez MD [Family Provider, Family Practice]
Jamie Fuentes DO [Active, Neurosurgery] - Call in 1-3 days for appt
Interventions
Interventions:
*Risk Screen - Suicide Last Done: 01/17/25 15:41
*General Assessment Last Done: 01/17/25 15:41
*Neglect/Abuse Screening Last Done: 01/17/25 15:41
*ED- Fall Risk Assessment Last Done: 01/17/25 21:26
*ED COVID-19 Vaccine History Last Done: 01/17/25 15:41
*ED Influenza Vaccine History Last Done: 01/17/25 15:41
*Nursing Disposition Last Done: 01/17/25 21:26
ED- Neurological Assessment Last Done: 01/17/25 21:12
ED- Cardiac Assessment Last Done: 01/17/25 21:26
ED Swallowing Screen Last Done: 01/17/25 21:12
Discharge Date and Time
Discharge Date/Time: 01/17/25 21:27
Print Language: BRITISH
== END 2025-01-17 21:27 | disposition home or self-care (01) ==
LOC: EMR 15:20
PROVIDERS: EMERGENCY PHYSICIAN Emergency Medicine; FAMILY PHYSICIAN Family Medicine
DX: M47.22 Other spondylosis with radiculopathy, cervical region (principal); E78.00 Pure hypercholesterolemia, unspecified; I10 Essential (primary) hypertension; I25.10 Atherosclerotic heart disease of native coronary artery without angina pectoris; I25.2 Old myocardial infarction; N40.1 Benign prostatic hyperplasia with lower urinary tract symptoms; Z90.79 Acquired absence of other genital organ(s); Z95.5 Presence of coronary angioplasty implant and graft
CPT/HCPCS: 99284; 70450; 72125; 80053; 84484; 85025; 85610; 93005